=== PATIENT | male | born 1955 | race Caucasian/White ===

== ENCOUNTER 2024-01-12 08:10 | Day surgery (SDC) | payer OTHER ==
[2024-01-12] VITALS (8 sets, daily range): BP systolic 97–141; BP diastolic 66–101
[~2024-01-12] VITALS: Ht 180.3 cm; Wt 95.0 kg
[2024-01-12] MEDS ORDERED: Heparin Sodium 1000 Units/ML 10ML MDV ONE (08:28)
[2024-01-12] MEDS ORDERED: Nitroglycerin 2 MG/20 ML BTL ONE (08:28)
[2024-01-12] MEDS ORDERED: NS 250 ML IV ONE (08:28)
[2024-01-12] MEDS ORDERED: Verapamil HCL 2.5 MG/ML 2ML Injection ONE (08:28)
[2024-01-12] MEDS ORDERED: NS 1,000 ML IV ONE ×2 (08:28→08:38)
[2024-01-12] MEDS ORDERED: Midazolam HCl 1MG / ML 2ML Vial ONE (08:38)
[2024-01-12] MEDS ORDERED: FentaNYL Citrate 50 MCG/ML 2 ML Injection ONE (08:38)
[2024-01-12] MEDS ORDERED: Aspir 8181 MG PO (08:39)
[2024-01-12] MEDS ORDERED: Carvedilol12.5 MG PO (08:40)
[2024-01-12] MEDS ORDERED: JARDIANCE25 MG PO (08:40)
[2024-01-12] MEDS ORDERED: ATOR10 PO (08:40)
[2024-01-12] MEDS ORDERED: OMEP20ER PO (08:41)
[2024-01-12] MEDS ORDERED: METF500 PO (08:41)
[2024-01-12] MEDS ORDERED: ENTRESTO 24 MG1 EAC2 (08:41)
[2024-01-12] MEDS ORDERED: OZEMPIC0.25 MG/02 SQ (08:42)
[2024-01-12] MEDS ORDERED: TRAZ100 PO (08:42)
--- NOTE | 2024-01-12 10:34 | NUR ---
pt given coffee per request.
--- NOTE | 2024-01-12 11:02 | NUR ---
2cc removed from tr band. site soft and non-tender per pt. no bleeding noted.
--- NOTE | 2024-01-12 11:18 | NUR ---
tr band fully deflated. site soft and non-tender per pt. no bleeding noted.
--- NOTE | 2024-01-12 11:20 | NUR ---
dr meade at bedside to discuss procedure and plan of care.
--- NOTE | 2024-01-12 12:50 | NUR ---
pt given dc instructions and verbalized understanding. iv out. pt changed. radial and rhc site both soft and non-tender per pt. no bleeding noted at either site. cloth dot, arm board, and sling applied. pt taken to parking lot via . [facility] to take pt home.
== END 2024-01-12 14:03 | disposition home or self-care (01) ==
LOC: MHTC 08:10
DX: I11.0 Hypertensive heart disease with heart failure (principal); I50.32 Chronic diastolic (congestive) heart failure; R55 Syncope and collapse; I25.5 Ischemic cardiomyopathy; I25.10 Atherosclerotic heart disease of native coronary artery without angina pectoris; R93.1 Abnormal findings on diagnostic imaging of heart and coronary circulation; I95.2 Hypotension due to drugs; E11.9 Type 2 diabetes mellitus without complications; Z88.0 Allergy status to penicillin; Z79.899 Other long term (current) drug therapy
CPT/HCPCS: 76937; 93460; 99152; C1769; C1887; C1894; J1644; J2250; J3010; J7030; J7050; Q9967